=== PATIENT | female | born 2005 | race Two or more races ===

== ENCOUNTER 2024-08-13 12:12 | Emergency (ER) | payer OTHER ==
[~2024-08-13] VITALS: Ht 165.1 cm; Wt 63.5 kg
[2024-08-13] MEDS ORDERED: ONDANSETRON HCL 2 MG/ML VIAL IV SCH (13:35)
[2024-08-13] MEDS ORDERED: FAMOTIDINE/PF 20 MG/2 ML VIAL IV ONE (13:45)
[2024-08-13] MEDS ORDERED: DEXTROSE 5 %-0.45 % SOD CHLORD 1,000 ML IV SCH (13:45)
[2024-08-13] MEDS ORDERED: ONDANSETRON HCL 2 MG/ML VIAL ONE (13:54)
[2024-08-13] MEDS ORDERED: FAMOTIDINE/PF 20 MG/2 ML VIAL ONE (13:54)
[2024-08-13 14:25] LABS: BASO % 0.2 % (0.1-1.2); HEMATOCRIT 42.4 % (34.1-44.9); HEMOGLOBIN 14.1 g/dL (11.2-15.7); LYMPH # 0.51 (1.18-3.74); LYMPH % 4.2 % (19.3-53.1); MONO # 0.52 (0.24-0.82); MONO % 4.2 % (4.7-12.5); NEUT # 11.14 (1.56-6.13); NEUT % 90.9 % (34.0-71.1); PLATELET COUNT 245 K/uL (163-369); RED CELL DISTRIBUTION WIDTH 13.4 % (11.6-14.4)
[2024-08-13 14:42] LABS: COVID-19 AG NEGATIVE (NEGATIVE)
[2024-08-13 14:46] LABS: INFLUENZA A AG NEGATIVE (NEGATIVE); INFLUENZA B AG NEGATIVE (NEGATIVE)
[2024-08-13 14:49] LABS: ALBUMIN 4.4 gm/dL (3.4-5.0); BILIRUBIN TOTAL 0.8 mg/dL (0.3-1.2); CALCIUM 9.4 mg/dL (8.5-10.1); CREATININE SERUM 0.78 mg/dL (0.55-1.02); GFR 94.16; GLOBULINA 3.9 G/DL (2.4-3.5); TOTAL PROTEIN 8.3 gm/dL (6.4-8.2)
[2024-08-13 17:51] LABS: URINE APPEARANCE Clear; URINE BILIRRUBIN Negative (NEGATIVE); URINE BLOOD Negative; URINE COLOR Yellow; URINE GLUCOSE Negative (NEGATIVE); URINE KETONE Negative (NEGATIVE); URINE LEUKOCYTE Negative; URINE NITRATE Negative; URINE PROTEIN Negative (NEGATIVE); URINE UROBILINOGEN 0.2 E.U./dl
[2024-08-13 17:55] LABS: URINE BACTERIA 26.9 uL (0.0-1933); URINE EPITHELIAL CELLS 4.2 uL (0.0-38.8); URINE WBC 2.3 uL (0.0-23.2)
[2024-08-13 17:56] LABS: URINE RBC 1.4 uL (0.0-20.8)
[2024-08-13] MEDS ORDERED: PANTOPRAZOLE SODIUM 4 MG/ML REDILUIDO IV STA (19:44)
== END 2024-08-13 21:16 | disposition home or self-care (01) ==
LOC: ER 12:36 → EMR PED 12:36
PROVIDERS: General Practice
DX: R11.10 Vomiting, unspecified (principal); Z20.822 Contact with and (suspected) exposure to COVID-19